=== PATIENT | male | born 1985 | race African-American/Black ===

== ENCOUNTER 2019-06-10 19:26 | Emergency (ER) | payer MEDICAID ==
[~2019-06-10] VITALS: Ht 180.3 cm; Wt 72.6 kg
[2019-06-10] MEDS ORDERED: Ketorolac 30mg Inj IV ONE (19:45)
--- NOTE | 2019-06-10 19:46 | Emergency Room Report ---
History of Present Illness General Chief Complaint: Flu Like Symptoms Source: Patient Present Illness HPI 34-year-old male with history of right bundle branch block complaining of fever and cough x3 days with generalized body pain. Woke up this morning with upper chest pain. Pain is 5/10, sharp in quality. No relieving/ aggravating factors. 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 Did not receive a flu shot. Allergies: Coded Allergies: No Known Allergies (Unverified , 06/10/19) Patient History Past Medical History: other - RBBB, kidney disease Past Surgical History: none Social History: Reports: smoking, alcohol use Nursing Documentation-[facility] Past Medical History: No History, Except For Hx Cardiac Problems: Yes - RBBB Review of Systems All Other Systems: negative except mentioned in HPI Physical Exam Vital Signs Date Time Temp Pulse Resp B/P (MAP) Pulse Ox O2 Delivery O2 Flow Rate FiO2 06/10/19 19:30 102.7 103 18 109/72 (84) 97 Room Air Sp02 EP Interpretation: reviewed, normal General Appearance: no apparent distress, alert, GCS 15, non-toxic ENT: hearing grossly normal, normal pharynx, no angioedema, normal voice Respiratory: chest non-tender, lungs clear, normal breath sounds, speaking full sentences Cardiovascular #1: regular rate, rhythm, no edema Gastrointestinal: normal bowel sounds, non tender, soft, non-distended, no guarding, no rebound Musculoskeletal: back normal, normal range of motion, gait/station normal Neurologic: alert, motor strength/tone normal, oriented x3, sensory intact, responsive, speech normal Skin: no rash, normal inspection, warm/dry Medical Decision Making PA Attestation This patient was seen under the direct supervision of Dr. Magallanes, who directed all aspects of care and diagnostic interpretation. Diagnostic Impression: Primary Impression: Fever Additional Impression: Viral infection ER Course ED course HPI: 34-year-old male with history of right bundle branch block complaining of fever and cough x3 days with generalized body pain. Woke up this morning with upper chest pain. Pain is 5/10, sharp in quality. No relieving/ aggravating factors. 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 Did not receive a flu shot. Ddx: Influenza, pneumonia HPI & PE consistent with: Fever Orders/ Interventions: Patient presenting with flu-like symptoms and fever of 102.8. Started on 1 L of normal saline with Toradol 30 mg IV and acetaminophen 1 g p.o. CXR shows no evidence of cardiopulmonary disease. EKG shows NSR HR 86, right bundle branch block, no acute changes. CBC shows WBC 3.1, hemoglobin 16.4. CBC showed no evidence of systemic infection or severe anemia. CMP unremarkable except for BUN 20, creatinine 1.6, mild-moderate kidney damage. CMP showed no evidence of electrolyte abnormalities, severe acidosis, alkalosis, or liver disease. Negative rapid influenza. Negative troponin. Case discussed with Dr. Magallanes, who agreed with ER course and disposition. Disposition: Supportive care. Increase oral hydration. Prescription for acetaminophen given. Smoking cessation discussed and encouraged. Followup with PCP for kidney recheck in 2 -3 days, patient agreed and verbalized understanding. At this time pt. is stable for d/c to home. Will provide printed patient care instructions, and any necessary prescriptions. Care plan and follow up instructions have been discussed with the patient prior to discharge. Please note that this Emergency Department Report was dictated using [employer] geologist technology software, occasionally this can lead to erroneous entry secondary to interpretation by the dictation equipment. Laboratory Tests Test 06/10/19 19:57 White Blood Count 3.1 K/UL (4.8-10.8) L Red Blood Count 4.75 M/UL (4.70-6.10) Hemoglobin 16.3 G/DL (14.2-18.0) Hematocrit 43.5 % (42.0-52.0) Mean Corpuscular Volume 92 FL (80-99) Mean Corpuscular Hemoglobin 34.2 PG (27.0-31.0) H Mean Corpuscular Hemoglobin Concent 37.4 G/DL (32.0-36.0) H Red Cell Distribution Width 9.8 % (11.6-14.8) L Platelet Count 148 K/UL (150-450) L Mean Platelet Volume 5.8 FL (6.5-10.1) L Neutrophils (%) (Auto) % (45.0-75.0) Lymphocytes (%) (Auto) % (20.0-45.0) Monocytes (%) (Auto) % (1.0-10.0) Eosinophils (%) (Auto) % (0.0-3.0) Basophils (%) (Auto) % (0.0-2.0) Differential Total Cells Counted 50 Neutrophils % (Manual) 40 % (45-75) L Lymphocytes % (Manual) 38 % (20-45) Monocytes % (Manual) 18 % (1-10) H Eosinophils % (Manual) 0 % (0-3) Basophils % (Manual) 0 % (0-2) Band Neutrophils 4 % (0-8) Platelet Estimate Decreased L Platelet Morphology Normal Red Blood Cell Morphology Normal Sodium Level 138 MMOL/L (136-145) Potassium Level 3.6 MMOL/L (3.5-5.1) Chloride Level 100 MMOL/L (98-107) Carbon Dioxide Level 27 MMOL/L (21-32) Anion Gap 11 mmol/L (5-15) Blood Urea Nitrogen 20 mg/dL (7-18) H Creatinine 1.6 MG/DL (0.55-1.30) H Estimate Glomerular Filtration Rate 59.6 mL/min (>60) Glucose Level 102 MG/DL (74-106) Calcium Level 8.6 MG/DL (8.5-10.1) Total Bilirubin 0.3 MG/DL (0.2-1.0) Aspartate Amino Transferase (AST) 38 U/L (15-37) H Alanine Aminotransferase (ALT) 26 U/L (12-78) Alkaline Phosphatase 80 U/L (46-116) Troponin I 0.001 ng/mL (0.000-0.056) Total Protein 8.2 G/DL (6.4-8.2) Albumin 4.1 G/DL (3.4-5.0) Globulin 4.1 g/dL Albumin/Globulin Ratio 1.0 (1.0-2.7) Microbiology Date/Time Source Procedure Growth Status 06/10/19 20:05 Nasal Not Otherwise Specified - Final Complete 06/10/19 20:05 Nasal Not Otherwise Specified - Final Complete Laboratory Tests Test 06/10/19 19:57 White Blood Count 3.1 K/UL (4.8-10.8) L Red Blood Count 4.75 M/UL (4.70-6.10) Hemoglobin 16.3 G/DL (14.2-18.0) Hematocrit 43.5 % (42.0-52.0) Mean Corpuscular Volume 92 FL (80-99) Mean Corpuscular Hemoglobin 34.2 PG (27.0-31.0) H Mean Corpuscular Hemoglobin Concent 37.4 G/DL (32.0-36.0) H Red Cell Distribution Width 9.8 % (11.6-14.8) L Platelet Count 148 K/UL (150-450) L Mean Platelet Volume 5.8 FL (6.5-10.1) L Neutrophils (%) (Auto) % (45.0-75.0) Lymphocytes (%) (Auto) % (20.0-45.0) Monocytes (%) (Auto) % (1.0-10.0) Eosinophils (%) (Auto) % (0.0-3.0) Basophils (%) (Auto) % (0.0-2.0) Neutrophils % (Manual) Pending Lymphocytes % (Manual) Pending Platelet Estimate Pending Platelet Morphology Pending Sodium Level 138 MMOL/L (136-145) Potassium Level 3.6 MMOL/L (3.5-5.1) Chloride Level 100 MMOL/L (98-107) Carbon Dioxide Level 27 MMOL/L (21-32) Anion Gap 11 mmol/L (5-15) Blood Urea Nitrogen 20 mg/dL (7-18) H Creatinine 1.6 MG/DL (0.55-1.30) H Estimate Glomerular Filtration Rate 59.6 mL/min (>60) Glucose Level 102 MG/DL (74-106) Calcium Level 8.6 MG/DL (8.5-10.1) Total Bilirubin 0.3 MG/DL (0.2-1.0) Aspartate Amino Transferase (AST) 38 U/L (15-37) H Alanine Aminotransferase (ALT) 26 U/L (12-78) Alkaline Phosphatase 80 U/L (46-116) Troponin I 0.001 ng/mL (0.000-0.056) Total Protein 8.2 G/DL (6.4-8.2) Albumin 4.1 G/DL (3.4-5.0) Globulin 4.1 g/dL Albumin/Globulin Ratio 1.0 (1.0-2.7) Microbiology Date/Time Source Procedure Growth Status 06/10/19 20:05 Nasal Not Otherwise Specified - Final Complete 06/10/19 20:05 Nasal Not Otherwise Specified - Final Complete EKG Diagnostic Results EKG Time: 19:55 EP Interpretation: Dr. Magallanes Rate: normal Rhythm: NSR ST Segments: no acute changes Other Impression right bundle branch block Chest X-Ray Diagnostic Results Chest X-Ray Diagnostic Results : Chest X-Ray Ordered: Yes # of Views/Limited/Complete: 1 View Indication: Chest Pain EP Interpretation: Yes SHARMIN Xray: Interpretation reviewed, by supervising - Dr. Magallanes Interpretation: no consolidation, no effusion, no acute cardiopulmonary disease Impression: No acute disease Electronically Signed by: Jennifer FINNEY Scribaraceli Text TECHNIQUE: Frontal view of the chest. COMPARISON: No relevant prior studies available. FINDINGS: Lungs: Unremarkable. No consolidation. Pleural space: Unremarkable. No pneumothorax. Heart: Unremarkable. No cardiomegaly. Mediastinum: Unremarkable. Bones/joints: Unremarkable. IMPRESSION: Unremarkable frontal view of the chest. Dictated By: Luis Greco MD Electronically Signed By: Luis Greco MD Signed Date/Time 06/10/192022 Last Vital Signs Date Time Temp Pulse Resp B/P (MAP) Pulse Ox O2 Delivery O2 Flow Rate FiO2 06/10/19 19:30 102.7 103 18 109/72 (84) 97 Room Air Status: improved - Temperature 101.7, HR 82 Disposition: HOME, SELF-CARE Condition: Improved Scripts Acetaminophen (Acetaminophen) 500 Mg Tablet 1000 MG ORAL Q8HR for PAIN OR FEVER, #30 TAB Prov: Jennifer Barboza 06/10/19 Referrals: NOT CHOSEN IPA/,REFERRING (PCP) Patient Instructions: Fever, Adult, [id number] Additional Instructions: Labs today show decreased kidney function, avoid NSAIDs. Follow-up with PCP in 2 to 3 days to recheck kidney function. Return to ER if worsening symptoms, new symptoms or sudden change in condition. Jennifer Barboza Jun 10, 2019 19:46
[2019-06-10 19:55] VITALS: BP 109/72
[2019-06-10] MEDS ORDERED: Acetaminophen 500mg (ES) tab ORAL ONE (20:00)
[2019-06-10 20:05] LABS: HEMATOCRIT 43.5 % (42.0-52.0); HEMOGLOBIN 16.3 G/DL (14.2-18.0); MEAN CORPUSCULAR VOLUME 92 FL (80-99); PLATELET COUNT 148 K/UL (150-450); RED BLOOD COUNT 4.75 M/UL (4.70-6.10); RED CELL DISTRIBUTION WIDTH 9.8 % (11.6-14.8); WHITE BLOOD COUNT 3.1 K/UL (4.8-10.8)
--- NOTE | 2019-06-10 20:24 | Diagnostic Imaging Report ---
EXAM: XR Chest, 1 View CLINICAL HISTORY: COUGH TECHNIQUE: Frontal view of the chest. COMPARISON: No relevant prior studies available. FINDINGS: Lungs: Unremarkable. No consolidation. Pleural space: Unremarkable. No pneumothorax. Heart: Unremarkable. No cardiomegaly. Mediastinum: Unremarkable. Bones/joints: Unremarkable. IMPRESSION: Unremarkable frontal view of the chest.
[2019-06-10 20:25] LABS: ANION GAP 11 mmol/L (5-15); BLOOD UREA NITROGEN 20 mg/dL (7-18); CALCIUM 8.6 MG/DL (8.5-10.1); CARBON DIOXIDE 27 MMOL/L (21-32); CHLORIDE 100 MMOL/L (98-107); CREATININE 1.6 MG/DL (0.55-1.30); POTASSIUM 3.6 MMOL/L (3.5-5.1); SODIUM 138 MMOL/L (136-145)
[2019-06-10 20:29] LABS: ALANINE AMINOTRANSFERASE 26 U/L (12-78); ALBUMIN 4.1 G/DL (3.4-5.0); ALKALINE PHOSPHATASE 80 U/L (46-116); ASPARTATE AMINO TRANSFERASE 38 U/L (15-37); BILIRUBIN,TOTAL 0.3 MG/DL (0.2-1.0)
[2019-06-10] MEDS ORDERED: ACETAMINOPHEN500 M5 ORAL (20:50)
[2019-06-10 21:05] VITALS: BP 116/98
--- NOTE | 2019-06-21 14:07 | Cardiology Report ---
APPROVED REPORT EKG Measurement Heart [id number] <Conclusion> Normal sinus rhythm Left axis deviation Incomplete right bundle branch block Abnormal ECG
== END 2019-06-10 21:05 | disposition home or self-care (01) ==
LOC: EMR 19:43
DX: B34.9 Viral infection, unspecified (principal); R50.9 Fever, unspecified; I45.10 Unspecified right bundle-branch block; F17.200 Nicotine dependence, unspecified, uncomplicated; N28.9 Disorder of kidney and ureter, unspecified
CPT/HCPCS: 36415; 71045; 80053; 84484; 85007; 85025; 86710; 93005; 96361; 96374; J1885; J7030; Z7502; 99284